=== PATIENT | female | born 1965 | race Caucasian/White ===

== ENCOUNTER 2018-06-13 15:01 | Emergency (ER) | payer OTHER ==
--- NOTE | 2018-06-13 16:15 | EDPHY ---
H & P Smoking Status: Never smoked Time Seen by Provider: 06/13/18 15:50 HPI/ROS: CHIEF COMPLAINT: Fall, left shoulder injury HISTORY OF PRESENT ILLNESS: 53-year-old female presents to the emergency department after she had a mechanical fall earlier this afternoon injuring her left shoulder. She did not hit her head or lose consciousness. Denies neck or back pain. Denies chest pain or difficulty breathing. Denies paresthesias in her upper or lower extremities. She denies pain in the left wrist or elbow. Denies symptoms in her right upper extremity or lower extremities bilaterally. Patient is right-hand dominant. REVIEW OF SYSTEMS: Constitutional: No fever, no chills. Eyes: No double or blurry vision. ENT: No sore throat. Respiratory: No cough, no shortness of breath. Cardiac: No chest pain. Gastrointestinal: No abdominal pain, vomiting or diarrhea. Genitourinary: No dysuria. Musculoskeletal: No neck or back pain. Skin: No rashes. Neurological: No headache. (MiriamTianna burnett) Past Medical/Surgical History: Postmenopausal, left hip fracture repair (MiriamTianna burnett) Social History: , visiting from the (MiriamTianna burnett) Physical Exam: General Appearance: Alert, no distress. Mentating normally and answering questions appropriately. No visible signs of trauma to her head. Eyes: Pupils equal and round. Extraocular motions are all intact. ENT: Mouth: Mucous membranes moist. Respiratory: No wheezing, rhonchi, or rales, lungs are clear to auscultation. Cardiovascular: Regular rate and rhythm. Gastrointestinal: Abdomen is soft and nontender, no masses, no rebound or guarding, bowel sounds normal. Neurological: Alert and oriented x 3, cranial nerves II through XII grossly intact Skin: Warm and dry, no rashes. Musculoskeletal: Nontender to palpate along the cervical, thoracic or lumbar spine. Neck is supple. Extremities: Limited range of motion of the left shoulder secondary to pain. She has pain with palpation over the proximal humerus over humeral head. She has full range of motion of her left elbow and left wrist. Nontender to palpate in the right upper extremity or lower extremities bilaterally. Psychiatric: Patient is oriented X 3, there is no agitation. (MiriamTianna burnett) Constitutional: Initial Vital Signs Temperature (C) 36.6 C 06/13/18 15:07 Heart Rate 61 06/13/18 15:07 Respiratory Rate 16 06/13/18 15:07 Blood Pressure 94/61 L 06/13/18 15:07 O2 Sat (%) 100 06/13/18 15:07 O2 Delivery Mode Room Air Medical Decision Making - Diagnostics Imaging: I viewed and interpreted images myself - Diagnostics Imaging Results: Imaging Impressions Humerus X-Ray 06/13/18 15:12 Impression: Nondisplaced left humeral head greater tuberosity fracture. Procedures: The patient was placed in a sling and examined post application in good placement with normal [employer]. (Tianna Lopez) ED Course/Re-evaluation: 53-year-old female presents to the emergency department with left shoulder injury. X-rays reveal nondisplaced humeral head fracture. She was placed in a sling and given orthopedic referral. (Tianna Lopez) I did not see this patient while she was in the emergency department. However her care was discussed with the PA while the patient was in the department. I agree with treatment plan and management (Lalito Lyons) Differential Diagnosis: Including but not limited to fracture, dislocation, contusion, sprain (Tianna Lopez) Departure - Departure Disposition: Home, Routine, Self-Care Clinical Impression: Left humeral fracture Qualifiers: Encounter type: initial encounter Humerus Location: proximal Fracture type: closed Fracture morphology: unspecified fracture morphology Qualified Code(s): S42.202A - Unspecified fracture of upper end of left humerus, initial encounter for closed fracture Condition: Good Instructions: Arm Fracture in Adults (ED) Additional Instructions: Keep sling on until follow-up with orthopedic surgeon on-call next week. Ibuprofen 400 mg every 8 hr as needed for pain. Ice to help reduce swelling. Return to the emergency department if you develop numbness or tingling in your fingers, increasing pain, neck pain, or if you feel worse in any way. Referrals: Vinh Moreira MD [Medical Doctor] - 2-3 days without fail (Orthopedic surgeon on-call)
[2018-06-13 16:21] VITALS: BP 109/63
== END 2018-06-13 16:51 | disposition home or self-care (01) ==
DX: S42.255A Nondisplaced fracture of greater tuberosity of left humerus, initial encounter for closed fracture (principal); W18.39XA Other fall on same level, initial encounter
CPT/HCPCS: A4565